=== PATIENT | female | born 1980 | race African-American/Black ===

== ENCOUNTER 2016-12-15 12:22 | Emergency (ER) | payer SELFPAY ==
[2016-12-15 13:44] VITALS: BP 148/77
--- NOTE | 2016-12-15 15:02 | UC ---
Complaint Female HPI - HPI Summary HPI Summary: 36 year old female complaining of right low back pain which radiates down the posterior leg into the right popliteal space with numbness and tingling x 1 month. Pain started when patient woke up and attempted to get out of bed. 10/10 deep achy pain accompanied by numbness and tingling with movement of the right leg. Patient reports weakness in the right leg with prolonged standing. Denies injury to the back. : Patient reports right sided mid-back/flank pain and urinary frequency x 10 days. Denies any sexual intercourse x 2 years, fever, n/v. Patient states, "I have felt wetter down there, vaginally." Denies textural changes in vaginal discharge or odor. - History Of Current Complaint Chief Complaint: UCBackPain Stated Complaint: LOWER BACK PAIN Time Seen by Provider: 12/15/16 14:21 Hx Obtained From: Patient Hx Last Menstrual Period: 11/29/16 ?: No Onset/Duration: Gradual Onset Timing: Intermittent Severity Initially: Moderate Severity Currently: Moderate Pain Intensity: 10 Pain Scale Used: 0-10 Numeric Character: Sharp - Sharp right sided CVA pain, Dull Aggravating Factor(s): Movement Alleviating Factor(s): Position Associated Signs And Symptoms: Positive: Back Pain, Vaginal Discharge. Negative : Fever, Nausea, Genital Swelling - Risk Factors Ectopic Risk Factor: Negative Ovarian Torsion Risk Factor: Negative - Allergies/Home Medications Allergies/Adverse Reactions: Allergies Allergy/AdvReac Type Severity Reaction Status Date / Time No Known Allergies Allergy Verified 12/15/16 13:44 PMH/Surg Hx/FS Hx/Imm Hx Previously Healthy: Yes Endocrine History Of: Denies: Diabetes Cardiovascular History Of: Denies: Hypertension Respiratory History Of: Denies: COPD, Asthma, Bronchitis, Pneumonia, Pulmonary Embolism GI/ History Of: Denies: Gastroesophageal Reflux, Ulcer, Gastrointestinal Bleed, Gall Bladder Disease, Kidney Stones, Diverticulitis, Renal Disease, Urosepsis Neurological History Of: Denies: TIA, CVA, Dementia, Seizures, Migraine Psychological History Of: Denies: Anxiety, Depression, Bipolar Disorder, Schizophrenia, Post Traumatic Stress Disorder - Surgical History Surgical History: Yes Surgery Procedure, Year, and Place: 1 C SECTION - Family History Known Family History: Positive: Unknown, Cardiac Disease, Hypertension, Diabetes - Social History Occupation: Employed Part-time Lives: Alone Alcohol Use: None Substance Use Type: Marijuana Smoking Status (MU): Current Every Day Smoker Type: Cigarettes Amount Used/How Often: 1 PACK/WEEK Have You Smoked in the Last Year: Yes Household Exposure Type: Cigarettes Review of Systems Constitutional: Negative Skin: Negative Eyes: Negative ENT: Negative Respiratory: Negative Cardiovascular: Negative Gastrointestinal: Negative Genitourinary: Frequency, Urgency Motor: Negative Neurovascular: Negative Musculoskeletal: Other: - Weakness in the right leg Neurological: Weakness, Numbness Psychological: Negative All Other Systems Reviewed And Are Negative: Yes Physical Exam Triage Information Reviewed: Yes Appearance: No Pain Distress Vital Signs: Initial Vital Signs Temp 97.9 F 12/15/16 13:39 Pulse 69 12/15/16 13:39 Resp 16 12/15/16 13:39 BP 148/77 12/15/16 13:39 Pulse Ox 100 12/15/16 13:39 Vital Signs Reviewed: Yes Eye Exam: Normal Eyes: Positive: Conjunctiva Clear ENT Exam: Normal ENT: Positive: Normal ENT inspection, Hearing grossly normal, Pharynx normal, TMs normal Dental Exam: Normal Neck exam: Normal Neck: Positive: Supple, Nontender, No Lymphadenopathy Respiratory: Positive: Chest non-tender, Lungs clear, Normal breath sounds, No respiratory distress Abdomen Description: Positive: No Organomegaly, Soft, Distended - Related to weight Bowel Sounds: Positive: Present Musculoskeletal: Positive: Other: - Right sided CVA tenderness Neurological: Positive: Alert Psychological Exam: Normal Psychological: Positive: Normal Response To Family Skin Exam: Normal Complaint Female Dx - Differential Dx/Diagnosis Provider Diagnoses: Right sided lumbar radiculopathy. Right sided low back pain with muscle spasm. Right adnexal mass Discharge - Discharge Plan Condition: Stable Disposition: HOME Prescriptions: Cyclobenzaprine TAB* [Flexeril TAB*] 10 mg PO TID PRN #15 tab PRN Reason: Pain Naproxen Sodium 500 mg PO BID #20 tab Patient Education Materials: Lumbar Radiculopathy (ED), Ovarian Cyst (ED) Referrals: Lidia Ndiaye MD [Medical Doctor] - Addendum entered and electronically signed by Nanda Tuttle NP 12/15/16 16:37 : UC Addendum Addendum: Provider placed call to Dr Ndiaye bus person for consultation. OBGYN unable to give consultation stating, "this is not a patient at OBGYN, if you think they need consultation, send them to the ED". Discussed with patient red flags which would prompt her to seek immediate medical care.
[2016-12-15] MEDS ORDERED: Ketorolac INJ* 30 MG/ML 1 ML VIAL IM ONE (15:16)
[2016-12-15] MEDS ORDERED: Cyclobenzaprine TAB* 10 MG PO ONE (15:17)
--- NOTE | 2016-12-15 15:44 | RAD ---
Indication: Right flank pain, urinary frequency and hematuria. CT of the abdomen and pelvis was performed without oral or IV contrast administration. Coronal and sagittal reconstructed images were obtained. Prior CT of the lumbar spine dated July 02, 2014 was reviewed. Lung bases imaging no pleural fluid, nodules or masses. Heart is of normal size without evidence of pericardial effusion. Liver is normal in size. No focal lesions or intrahepatic ductal dilatation is noted. The gallbladder is partially contracted. No pericholecystic fluid or wall thickening is noted. Pancreas demonstrates no mass or pancreatic duct dilatation. There is left adrenal hyperplasia. Right adrenal gland is unremarkable. No hydronephrosis of either kidney is noted. No evidence of dilated ureters are noted. No evidence of ureteral calculi is noted. Beginning bladder is unremarkable. CT of the pelvis demonstrates a mass in the right adnexa. This demonstrates a fat fluid level and measures up to 5.4 x 6.4 cm with calcification. This is suspicious for dermoid cyst. Left ovary is grossly unremarkable. Numerous changes of the uterus are noted. No dilated loops of bowel are noted. The colon is filled with stool. IMPRESSION: NO EVIDENCE OF OBSTRUCTIVE UROPATHY IS NOTED. RIGHT ADNEXAL MASS WITH A FAT FLUID LEVEL NOTED. THERE ARE SOME CALCIFICATIONS NOTED. THIS IS SUSPICIOUS FOR DERMOID CYST. LEFT ADRENAL HYPERPLASIA IS NOTED. THIS IS UNCHANGED FROM THE PRIOR CT DATED JULY 02, 2014.
== END 2016-12-15 16:45 | disposition home or self-care (01) ==
LOC: UCEAST 12:22
DX: M54.16 Radiculopathy, lumbar region (principal); M62.830 Muscle spasm of back; R22.31 Localized swelling, mass and lump, right upper limb; F12.90 Cannabis use, unspecified, uncomplicated; F17.210 Nicotine dependence, cigarettes, uncomplicated
CPT/HCPCS: 74176; 81002; 96372; 99212; A9270-GY; G0463; J1885

== ENCOUNTER 2017-02-27 06:30 | Day surgery (SDC) | payer OTHER ==
[~2017-02-27 06:30] MED LIST: Buffered Lidocaine 1% SYR 3ML* 3 ML/SYR SYRINGE INTRADERM ONE; Dexamethasone IV* 4 MG/ML 1 ML (4 MG) IV SLOW PU ONE; Famotidine IV* 10 MG/ML 2 ML (20 mg) IV ONE
[2017-02-27 06:36] LABS: UR Preg Kit Lot# 6030156
[2017-02-27 06:37] LABS: Manual Entry Verification CAR0052; UR Preg Internal Control QC Line Present
[2017-02-27] MEDS ORDERED: Famotidine IV* 10 MG/ML 2 ML (20 mg) ONE (06:39)
[2017-02-27] MEDS ORDERED: Dexamethasone IV* 4 MG/ML 1 ML (4 MG) ONE (06:39)
[2017-02-27 07:17] LABS: Hematocrit 37 % (35-47); Mean Corpuscular HGB Conc 33 g/dl (31-36); Mean Corpuscular Hemoglobin 25 pg (27-31); Mean Corpuscular Volume 77 fL (80-97); Mean Platelet Volume 9 um3 (7.4-10.4); Red Blood Count 4.76 10^6/ul (4.0-5.4); Red Cell Distribution Width 15 % (10.5-15)
[2017-02-27] MEDS ORDERED: Bupivacaine 0.25% SDV* 30 ML ONE (07:20)
[2017-02-27] MEDS ORDERED: fentaNYL* 50 MCG/ML 2 ML VIAL (100 MCG VIAL) ONE ×3 (07:29→10:33)
[2017-02-27] MEDS ORDERED: KETAMINE HCL* 50 MG/ML 10 ML VIAL ONE (07:29)
[2017-02-27] MEDS ORDERED: Midazolam* 1 MG/ML 2 ML VIAL (2 MG) ONE (07:30)
[2017-02-27] MEDS ORDERED: Lidocaine 1% INJ* 10 MG/ML 30 ML SDV ONE (07:34)
[2017-02-27] MEDS ORDERED: Rocuronium* 10 MG/ML VIAL ONE ×2 (08:04→09:11)
[2017-02-27] MEDS ORDERED: Labetalol IV* 5 MG/ML 20 ML VIAL ONE (08:09)
[2017-02-27] MEDS ORDERED: DiMENhydriNATE IV* 50 MG/ML VIAL IV PUSH PRN (09:03)
[2017-02-27] MEDS ORDERED: fentaNYL* 50 MCG/ML 2 ML VIAL (100 MCG VIAL) IV PRN (09:03)
[2017-02-27] MEDS ORDERED: Glycopyrrolate IV* 0.2 MG/ML 1 ML VIAL ONE (09:11)
[2017-02-27] MEDS ORDERED: Propofol* 10 MG/ML 20 ML BTL IV PUSH ONE (09:11)
[2017-02-27] MEDS ORDERED: Ondansetron INJ* 2 MG/ML VIAL ONE (09:11)
[2017-02-27] MEDS ORDERED: Succinylcholine* 20 MG/ML 10 ML VIAL ONE (09:11)
[2017-02-27] MEDS ORDERED: Neostigmine Methylsulfate* 2 MG/2 ML SYRINGE ONE (09:11)
[2017-02-27] MEDS ORDERED: Metoclopramide IV* 5 MG/ML 2 ML VIAL ONE (09:11)
[2017-02-27] MEDS ORDERED: Ketorolac INJ* 30 MG/ML 1 ML VIAL ONE (09:11)
[2017-02-27 11:18] VITALS: BP 123/75
--- NOTE | 2017-02-28 05:37 | OP ---
OPERATIVE REPORT: DATE OF OPERATION: 02/27/17 - [facility] DATE OF : 82 SURGEON: Yaneth Ansari MD SUPERVISORY INVESTIGATIVE SPECIALIST: Herminio Andersen MD ANESTHESIOLOGIST: Dr. Bryan. ANESTHESIA: General endotracheal. PRE-OP DIAGNOSIS: A 6-cm right ovarian cyst and morbid obesity. POST-OP DIAGNOSIS: A 6-cm right dermoid cyst and morbid obesity. OPERATIVE PROCEDURE: Laparoscopic right ovarian cystectomy. ESTIMATED BLOOD LOSS: 50 cc. URINE OUTPUT: 600 cc. IV FLUIDS: 1400 cc of lactated Ringer's. MATERIALS TO LABS: Right dermoid cyst. INDICATIONS: The patient is a 37-year-old, 3, para 2 who was incidentally found to have an approximately 6 cm right ovarian cyst, which appeared consistent with a dermoid. The patient only had fairly mild pelvic discomforts related to the cyst. After discussing her options, she desired to proceed with cystectomy. Since the patient is morbidly obese, trying to this with a laparotomy would have likely involved a very large incision, so we decided to proceed with a laparoscopic procedure. She was extensively counseled and consent was signed. FINDINGS: As expected, there was a large right ovarian cyst. Both tubes appeared to have been ligated in the past. Left ovary was normal size, but had some nodularity. Right ovarian tissue, which was attached to the dermoid also had some of this nodular appearance. Uterus appeared normal. There was a moderate amount of omental adhesions in the midline near the umbilicus from the patient's previous midline vertical incision. COMPLICATIONS: None. DESCRIPTION OF PROCEDURE: The risks, benefits, and alternatives were described to the patient and informed consent was obtained. The patient was taken to the operating room with IV running, where general anesthesia was induced and found to be adequate. The patient was prepped and draped in the normal sterile fashion in the low lithotomy position in [facility]. The patient's arms were crossed over her chest for better access laparoscopically. A Brandon catheter was placed during the prep. A time-out was performed. A bivalved speculum was placed in the vagina and a Hulka tenaculum was placed through the cervix and attached to the anterior cervix. The speculum was then removed and attention was then turned to the abdomen. Gloves were changed. 0.25% Marcaine was injected into the umbilicus and a 5 mm skin incision was made with the scalpel. Penetrating towel clamps were placed on the skin on either side. A long 5 mm bladeless trocar was then placed through the umbilical incision and into the peritoneal cavity using the towel clamps for elevation of the skin. Placement in the peritoneal cavity was confirmed laparoscopically. The peritoneum was then insufflated with carbon dioxide gas to a maximum pressure of 15 mmHg. 0.25% Marcaine was then injected into the left and right sides of the abdomen at about the level of the umbilicus. 5 mm incisions were made on both sides and again 5 mm trocars were placed on both sides without difficulty. The patient was then placed in the Trendelenburg position and the pelvis was well evaluated. There appeared to be a large right cyst with distinct ovarian tissue near the IP ligament. Decision was made to proceed with cystectomy at that time. A small incision was made using monopolar cautery on laparoscopic serina at the junction between the cyst and the ovarian tissue. Once this was opened, a LigaSure was used to extend this incision. We were able to find a relatively avascular plane here and using the LigaSure for coagulation of the tissue, the cyst was able to be intact and amputated from the right ovary. One area of bleeding was able to be quickly coagulated using the LigaSure. Once the cyst had been amputated from the ovary , it was left in the pelvis. The umbilical port was then removed and the incision was extended using the scalpel. A 12-mm bladeless trocar was then placed into the umbilical site without difficulty. A 12mm Endo Catch bag was then placed into the pelvis and the cyst was able to be placed into the bag without difficulty. Once the bag was closed, the opening was brought up through the umbilical incision. Since the cyst was much larger than the 12 mm port, the skin and then the fascial incisions were extended using scalpel and scissors. The fascial incision was extended to about 3 cm. Once this was done , the bag was able to be brought up enough so that the cyst was visualized. Once the cyst was ruptured, the sebaceous fluid was quickly suctioned and removed. Once this was complete, the cyst was able to be removed in the bag. The subcutaneous tissues were copiously irrigated with saline to remove whatever spillage of the cyst fluid there was. Of note, there was some hair noted inside the cyst, which was consistent with a dermoid. At that time, the fascial incision was reapproximated using 0 Polysorb in a running fashion. The abdomen was then again insufflated with carbon dioxide gas. The pelvis and especially the ovarian dissection site were carefully inspected and there was excellent hemostasis present. There was no visible active bleeding from the port sites. The umbilical site was very carefully inspected where a moderate amount of fatty tissue and omentum were adhesed. On inspection, there did not appear to be any evidence of bowel in the fatty tissue that was adhesed to the anterior wall. The gas was then allowed to escape completely from the abdomen and the patient was placed in a flat position. The lateral ports were then removed. All 3 skin incisions were then reapproximated using 4-0 Monocryl in a subcuticular stitch. All 3 were covered with a dermal skin adhesive. The Hulka tenaculum was removed from the cervix and the patient was returned to the supine position. The patient tolerated the procedure well. Sponge, lap, and needle counts were correct x2. [id number]/[facility] #: [id number] [facility]
== END 2017-03-24 08:44 | disposition home or self-care (01) ==
LOC: OR 06:30
PROVIDERS: ATTEND Obstetrics & Gynecology
DX: D27.0 Benign neoplasm of right ovary (principal); E66.01 Morbid (severe) obesity due to excess calories; Z68.42 Body mass index [BMI] 45.0-49.9, adult; Z72.0 Tobacco use
CPT/HCPCS: 36415; 81025; 85027; 86850; 86900; 86901; 88305; J0330; J1100; J1885; J2001; J2250; J2405; J2704; J3010

== ENCOUNTER → 2017-03-07 11:36 | Emergency (ER) | payer OTHER ==
[2017-03-07 11:40] VITALS: BP 124/67
== END | disposition left against medical advice (07) ==
LOC: ED 11:36
DX: M79.602 Pain in left arm (principal); Z53.21 Procedure and treatment not carried out due to patient leaving prior to being seen by health care provider
CPT/HCPCS: 93005

== ENCOUNTER 2017-06-10 12:53 | Emergency (ER) | payer OTHER ==
--- NOTE | 2017-06-10 14:32 | UC ---
Back Pain HPI - HPI Summary HPI Summary: 37 y/o female presents to the urgent care c/o of lower back pain after she fell from a chair at work on Thursday06/07/2017. Pt reports her pain is constant and is 8/10 today w/o any radiation, tingling or numbness over the lower extremities. Pt has taking Ibuprofen on and off w/ Epson salt which has alleviate pain. She took a Percocet yesterday that was given by a family member , but felt very drowsy. Pt denies fecal or urinary incontinence, saddle anesthesia, SOB, chest pain, N/V/D, fever. - History of Current Complaint Hx Obtained From: Patient Hx Last Menstrual Period: 05/26/17 ?: No Onset/Duration: Sudden Onset, Lasting Days, Still Present Timing: Constant Severity Initially: Moderate Severity Currently: Moderate Pain Intensity: 8 Pain Scale Used: 0-10 Numeric Back Pain: Is Discrete @ - lower back Character: Sharp, Spasmodic Aggravating: Movement, Lifting, Bending Alleviating: Rest Associated Signs And Symptoms: Negative: Fever, Numbness, Tingling, Bladder Incontinence, Bowel Incontinence, Weight Loss - Risk Factors AAA Risk Factors: Negative TAD Risk Factors: Negative Cauda Equina Risk Factors: Negative Epidural Abscess Risk Factors: Negative <Diana Jean - Last Filed: 06/12/17 01:40> <Pippa William - Last Filed: 06/12/17 07:30> - History of Current Complaint Chief Complaint: UCBackPain Stated Complaint: BACK PAIN Time Seen by Provider: 06/10/17 14:10 - Allergies/Home Medications Allergies/Adverse Reactions: Allergies Allergy/AdvReac Type Severity Reaction Status Date / Time No Known Allergies Allergy Verified 03/07/17 11:37 PMH/Surg Hx/FS Hx/Imm Hx Previously Healthy: Yes Other GI/ History: Benigns neoplasm of the ovary - Surgical History Surgical History: Yes Surgery Procedure, Year, and Place: 1 C SECTION 2004. tonsillectomy 9 or 10 yrs old - Family History Known Family History: Positive: Unknown, Cardiac Disease, Hypertension, Diabetes - Social History Occupation: Employed Full-time Lives: With Family Alcohol Use: Rare Alcohol Amount: 1 drink every 3 months Substance Use Type: Marijuana Substance Use Comment - Amount & Last Used: smokes marijuana daily Smoking Status (MU): Current Some Day Smoker Type: Cigarettes Amount Used/How Often: 1 PACK/WEEK Have You Smoked in the Last Year: Yes Household Exposure Type: Cigarettes <Diana Jean - Last Filed: 06/12/17 01:40> Review of Systems Constitutional: Negative Skin: Negative Eyes: Negative ENT: Negative Respiratory: Negative Cardiovascular: Negative Gastrointestinal: Negative Genitourinary: Negative Motor: Negative Neurovascular: Negative Musculoskeletal: Other: - lower back pain Neurological: Negative Psychological: Negative All Other Systems Reviewed And Are Negative: Yes <FabriciojaDiana monge - Last Filed: 06/12/17 01:40> Physical Exam Triage Information Reviewed: Yes Appearance: Well-Appearing, No Pain Distress, Well-Nourished, Obese Vital Signs: Initial Vital Signs Temp 98 F 06/10/17 12:57 Pulse 76 06/10/17 12:57 Resp 17 06/10/17 12:57 Pulse Ox 100 06/10/17 12:57 Vital Signs Reviewed: Yes Eye Exam: Normal Eyes: Positive: Conjunctiva Clear - PERRLA, EOMI, fundi grossly normal ENT Exam: Normal ENT: Positive: Normal ENT inspection, Hearing grossly normal, Pharynx normal, TMs normal Dental Exam: Normal Neck exam: Normal Neck: Positive: Supple, Nontender, No Lymphadenopathy Respiratory Exam: Normal Respiratory: Positive: Chest non-tender, Lungs clear, Normal breath sounds Cardiovascular Exam: Normal Cardiovascular: Positive: RRR, No Murmur, Pulses Normal, Brisk Capillary Refill Abdominal Exam: Normal Abdomen Description: Positive: Nontender, No Organomegaly, Soft. Negative: CVA Tenderness (R), CVA Tenderness (L) Bowel Sounds: Positive: Present Musculoskeletal: Positive: Strength Intact, No Edema, Other: - BACK: Patient walked into the urgent care room with symmetric ambulation, No signs of limping , antalgic, able to bear weight. No signs of trauma, No masses palpated. Point tenderness at the level of L5-S1,tenderness over the paraspinal muscles at the same level No CVAT, no flank ecchymosis . No sacroiliac notch tenderness, No saddle anesthesia.ROM: limited flexion/ extension/ lateral bending and rotation due to pain, Straight Leg Raise: negative. Patellar reflexes: brisk, symmetric Muscle strength lower extremities. Dorsiflexion/ plantar flexion of ankles. Heel / toe walk. Lower extremities: Femoral, popliteal, posterior tibial, and dorsalis pedis pulses WNL Neurological Exam: Normal Psychological Exam: Normal Skin Exam: Normal <Diana Jean - Last Filed: 06/12/17 01:40> Vital Signs: Initial Vital Signs Temp 98 F 06/10/17 12:57 Pulse 76 06/10/17 12:57 Resp 17 06/10/17 12:57 Pulse Ox 100 06/10/17 12:57 <Pippa William - Last Filed: 06/12/17 07:30> Back Pain Course/Dx - Course Course Of Treatment: 37 y/o female presents to the urgent care c/o of lower back pain after she fell from a chair at work on Thursday06/07/2017. Pt reports her pain is constant and is 8/10 today w/o any radiation, tingling or numbness over the lower extremities. Pt has taking Ibuprofen on and off w/ Epson salt which has alleviate pain. She took a Percocet yesterday that was given by a family member, but felt very drowsy. Pt denies fecal or urinary incontinence, saddle anesthesia, SOB, chest pain, N/V/D, fever. Hx obtained. PE abnormal findings:BACK: Patient walked into the urgent care room with symmetric ambulation, No signs of limping, antalgic, able to bear weight. No signs of trauma, No masses palpated. Point tenderness at the level of L5-S1,tenderness over the paraspinal muscles at the same level No CVAT, no flank ecchymosis . No sacroiliac notch tenderness, No saddle anesthesia.ROM: limited flexion/ extension/ lateral bending and rotation due to pain, Straight Leg Raise: negative. Patellar reflexes: brisk, symmetric Muscle strength lower extremities. Dorsiflexion/ plantar flexion of ankles. Heel/ toe walk. Lower extremities: Femoral, popliteal, posterior tibial, and dorsalis pedis pulses WNL. Pt w/ Hx of back pain, last years X-ray was negative. Pt Rx Naproxen PO and flexeril PO, avoid driving. Advised to wear a back support, avoid heavy lifting. f/u with her PCP for further evalaution and treatment. Pt understood and agreed and left the clinic ambulating. - Differential Dx/Diagnosis Differential Diagnosis/HQI/PQRI: Cauda Equina Syndrome, Compressive Cord Syndrome, Herniated Disc, Renal Colic, Strain, Sprain Provider Diagnoses: 1- Acute lower back pain. <Diana Jean - Last Filed: 06/12/17 01:40> Discharge <Diana Jean - Last Filed: 06/12/17 01:40> <Pippa William - Last Filed: 06/12/17 07:30> - Discharge Plan Condition: Stable Disposition: HOME Prescriptions: Cyclobenzaprine TAB* [Flexeril 10 MG TAB*] 10 mg PO TID PRN #15 tab PRN Reason: Spasms - Back Naproxen TAB* [Naprosyn 250 mg TAB*] 500 mg PO Q8H PRN #30 tab PRN Reason: Pain Patient Education Materials: Acute Low Back Pain (ED), Low Sodium Diet (ED) Forms: *Work Release Referrals: No Primary Care Phys,NOPCP [Primary Care Provider] - [facility] [Outside] - 1 Week Additional Instructions: Please take medications as instructed. Please apply ice, rest, wear a back support, avoid heavy lifting or strenuous exercise. Please f/u with your PCP in 1 week if symptoms do not improve. If pain increases despite medication go to the ER immediately. For elevated blood pressure please decrease salt intake and monitor your BP. Please F/u with PCP for further treatment. Attestation Statement User Type: Provider - I was available for consult. This patient was seen by the advanced practice provider. The patient was not presented to, seen by, or examined by me.-Peter <Pippa William - Last Filed: 06/12/17 07:30>
[2017-06-10 14:45] VITALS: BP 120/95
== END 2017-06-10 14:40 | disposition home or self-care (01) ==
LOC: UCEAST 12:53
DX: M54.5 Low back pain (principal); E66.9 Obesity, unspecified; F12.90 Cannabis use, unspecified, uncomplicated; Z72.0 Tobacco use
CPT/HCPCS: 99212; G0463

== ENCOUNTER 2019-03-01 18:46 | Emergency (ER) | payer OTHER ==
[2019-03-01 18:54] VITALS: BP 151/80
--- NOTE | 2019-03-01 19:47 | UC ---
Dental HPI - HPI Summary HPI Summary: Onset of left upper dental pain yesterday morning. No fever or noticeable drainage. Does not have a dentist. - History of Current Complaint Chief Complaint: UCDentalProblem Stated Complaint: DENTAL COMPLAINT Time Seen by Provider: 03/01/19 19:20 Hx Obtained From: Patient Hx Last Menstrual Period: 02/16/19 Onset/Duration: Gradual Onset, Lasting Days, Still Present Severity: Moderate Pain Intensity: 8 Pain Scale Used: 0-10 Numeric Aggravating Factor(s): Heat, Cold, Chewing Alleviating Factor(s): OTC Meds - IBUPROFEN - Allergies/Home Medications Allergies/Adverse Reactions: Allergies Allergy/AdvReac Type Severity Reaction Status Date / Time No Known Allergies Allergy Verified 03/01/19 18:54 Home Medications: Home Medications Ibuprofen 800 mg PO 03/01/19 [History] PMH/Surg Hx/FS Hx/Imm Hx Previously Healthy: Yes - Surgical History Surgical History: Yes Surgery Procedure, Year, and Place: 1 C SECTION 2004. tonsillectomy 9 or 10 yrs old - Family History Known Family History: Positive: Unknown, Cardiac Disease, Hypertension, Diabetes - Social History Alcohol Use: Rare Alcohol Amount: 1 drink every 3 months Substance Use Type: Marijuana Substance Use Comment - Amount & Last Used: smokes marijuana daily Smoking Status (MU): Light Every Day Tobacco Smoker Type: Cigarettes Amount Used/How Often: 1 PACK/WEEK Have You Smoked in the Last Year: Yes Household Exposure Type: Cigarettes Review of Systems All Other Systems Reviewed And Are Negative: Yes Constitutional: Positive: Negative ENT: Positive: Dental Pain Respiratory: Positive: Negative Cardiovascular: Positive: Negative Gastrointestinal: Positive: Negative Physical Exam Triage Information Reviewed: Yes Appearance: Well-Appearing, Well-Nourished, Pain Distress - MILD/MOD Vital Signs: Initial Vital Signs Temp 97.8 F 03/01/19 18:49 Pulse 82 03/01/19 18:49 Resp 18 03/01/19 18:49 BP 151/80 03/01/19 18:49 Pulse Ox 100 03/01/19 18:49 Vital Signs Reviewed: Yes Eyes: Positive: Conjunctiva Clear ENT: Positive: Hearing grossly normal, Pharynx normal, TMs normal Dental: Positive: Percussion Tenderness @ - LEFT UPPER, Gross Decay/Caries @ Neck: Positive: Supple, Nontender, No Lymphadenopathy Respiratory: Positive: No respiratory distress, No accessory muscle use Cardiovascular: Positive: Pulses Normal Abdomen Description: Positive: Soft Musculoskeletal: Positive: No Edema Neurological: Positive: Alert Psychological: Positive: Age Appropriate Behavior Skin: Negative: Rashes Dental Complaint Course/Dx - Differential Dx/Diagnosis Provider Diagnosis: Toothache Discharge - Sign-Out/Discharge Documenting (check all that apply): Patient Departure All imaging exams completed and their final reports reviewed: No Studies - Discharge Plan Condition: Stable Disposition: HOME Prescriptions: Amoxicillin/Clavulanate TAB* [Augmentin TAB 875*] 875 mg PO BID #20 tab Chlorhexidine MW 0.12% 473ML* [Peridex Mouth Wash 0.12%*] 15 ml SWISH SPIT BID # 1 bottle HYDROcodone/ACETAMIN 5-325 MG* [Dale 5-325 TAB*] 1 tab PO Q6H PRN #15 tab MDD 4 PRN Reason: Pain Patient Education Materials: Toothache (ED) Referrals: Loli Joshi NP [Primary Care Provider] - If Needed Additional Instructions: TAKE THE ANTIBIOTICS FOR THE FULL COURSE. RINSE YOUR MOUTH WITH WATER AFTER EATING OR DRINKING ANYTHING. ANTISEPTIC MOUTH RINSE TWICE DAILY. OTC MEDS NEEDED FOR DISCOMFORT. HYDROCODONE FOR BREAKTHROUGH FOLLOW-UP WITH A DENTIST [facility]. IBUPROFEN MAX DOSE: 600MG (3 TABS) EVERY 6 HRS OR 800MG (4 TABS) EVERY 8 HRS OR NAPROXEN MAX DOSE: 440MG (2 TABS) EVERY 12 HRS TYLENOL MAX DOSE: 1000MG (2 EXTRA STRENGTH TABS) EVERY 8 HRS OR 650MG (2 REGULAR TABS) EVERY 6 HRS [facility] D[facility] Dentist Office [address], [place], [place] [id number] Opens at [address] Dr. Efren Huerta, DDS [address], [place], [place] [address] Arnulfo Manuel D.D.S. [address], [place], [place] [id number] Opens at 8am - Billing Disposition and Condition Condition: STABLE Disposition: Home
== END 2019-03-01 19:50 | disposition home or self-care (01) ==
LOC: UCEAST 18:46
DX: K08.89 Other specified disorders of teeth and supporting structures (principal); F17.210 Nicotine dependence, cigarettes, uncomplicated; K02.9 Dental caries, unspecified
CPT/HCPCS: 99212; G0463

== ENCOUNTER 2020-01-09 15:17 | Emergency (ER) | payer SELFPAY ==
[2020-01-09 15:48] VITALS: BP 130/81
--- NOTE | 2020-01-09 17:46 | UC ---
Back Pain HPI - HPI Summary HPI Summary: 39 year old female, denies PMH/ DM, presents with increased back pain, right sided and left foot pain. Patient states increased pain in lower back, right side only x several weeks, has had history of back pain x ~ 2 years. Obese, stands for long periods at her job at [employer]. Denies numbness/ tlinging, radiating down either leg, no bowel/ bladder loss. better with rest. left foot has been painful for several weeks, worse with standing for longer periods of time. no numbness/ tingling. no coolness. better with rest. - History of Current Complaint Chief Complaint: UCBackPain Stated Complaint: BACK, LEG PAIN Time Seen by Provider: 01/09/20 16:09 Hx Obtained From: Patient Hx Last Menstrual Period: one week ago ?: No Onset/Duration: Sudden Onset, Lasting Days Timing: Constant Severity Initially: Moderate Severity Currently: Moderate Pain Intensity: 8 Pain Scale Used: 0-10 Numeric Back Pain: Is Discrete @ - left foot, right lower back Character: Sharp, Aching Aggravating Factor(s): Movement, Bending, Walking Alleviating Factor(s): Rest Associated Signs And Symptoms: Positive: Swelling, Pain with Weight Bearing. Negative: Redness, Bruising, Weakness, Numbness, Tingling, Abdominal Pain, Bladder Incontinence, Bowel Incontinence, Weight Loss - Allergies/Home Medications Allergies/Adverse Reactions: Allergies Allergy/AdvReac Type Severity Reaction Status Date / Time No Known Allergies Allergy Verified 01/09/20 15:48 Home Medications: Home Medications Ibuprofen 600 mg PO ONCE 03/01/19 [History Confirmed 01/09/20] Cyclobenzaprine TAB* [Flexeril 10 MG TAB*] 10 mg PO TID PRN #30 tab 01/09/20 [Rx ] Naproxen [Naproxen 250 mg tab] 250 mg PO Q12HR #30 tablet 01/09/20 [Rx] methylPREDNISolone [Medrol] 4 mg PO .SEE IN #1 tab.ds.pk 01/09/20 [Rx] PMH/Surg Hx/FS Hx/Imm Hx Previously Healthy: Yes - Surgical History Surgical History: Yes Surgery Procedure, Year, and Place: cyst removed from right ovary - Family History Known Family History: Positive: Unknown, Cardiac Disease, Hypertension, Diabetes - Social History Occupation: Employed Full-time - [employer] Alcohol Use: Rare Alcohol Amount: 1 drink every 3 months Substance Use Type: Marijuana Substance Use Comment - Amount & Last Used: smokes marijuana daily Smoking Status (MU): Light Every Day Tobacco Smoker Type: Cigarettes Amount Used/How Often: 1 PACK/WEEK Have You Smoked in the Last Year: Yes Household Exposure Type: Cigarettes Review of Systems All Other Systems Reviewed And Are Negative: Yes Constitutional: Positive: Negative Skin: Positive: Negative. Negative: Bruising Musculoskeletal: Positive: Arthralgia, Decreased ROM, Edema, Myalgia Neurological/Mental Status: Positive: Negative Psychological: Positive: Negative Is Patient Immunocompromised?: No Physical Exam Triage Information Reviewed: Yes Appearance: Well-Appearing, Well-Nourished, Pain Distress - mild Vital Signs: Initial Vital Signs Temp 97.7 F 01/09/20 15:45 Pulse 70 01/09/20 15:45 Resp 16 01/09/20 15:45 BP 130/81 01/09/20 15:45 Pulse Ox 100 01/09/20 15:45 Vital Signs Reviewed: Yes Eyes: Positive: Conjunctiva Clear ENT: Positive: Hearing grossly normal Musculoskeletal: Positive: Other: - TTP over right flank/ above iliac crest on Right side. Left side non-tender. moderate TTP over lumbar spine, SI joint b /l, none over thoracic. paraspinal tenderness lumbar region, R>L.. Patellar reflex 1+ b/l. neg homans. PT 2+ b/l. Full ROM, strength with b/l hip, knee , ankle testing grossly. ambulatory without difficulty. Neurological: Positive: Alert, Other: - patellar refelxes 1+ b/l Psychological Exam: Normal Psychological: Positive: Normal Response To Family Skin Exam: Normal Skin: Positive: Other - no erythema, no warmth noted over areas of tenderness. Denies. Negative: Rashes Back Pain Course/Dx - Course Course Of Treatment: Lower Back Strain, Arthritis Left foot - Steroids to help with back pain, foot pain - Naproxen after completed Medrol dose pack to help with inflammation, 1 tablet twice daily x 5 days - Stretching as shown - Physical therapy script given - Follow up with Dr. Priest for back pain, foot pain - work note given - FLexeril as needed for muscle spasms - Differential Dx/Diagnosis Provider Diagnosis: Strain of fascia of lower back, Arthritis Discharge ED - Sign-Out/Discharge Documenting (check all that apply): Patient Departure All imaging exams completed and their final reports reviewed: Yes - Discharge Plan Condition: Good Disposition: HOME Prescriptions: Cyclobenzaprine TAB* [Flexeril 10 MG TAB*] 10 mg PO TID PRN #30 tab PRN Reason: muscle spasms methylPREDNISolone [Medrol] 4 mg PO .SEE IN #1 tab.ds.pk Naproxen [Naproxen 250 mg tab] 250 mg PO Q12HR #30 tablet Patient Education Materials: Low Back Strain (ED), Core Strengthening Exercises (GEN), Lower Back Exercises (ED) Forms: *Work Release Referrals: No Primary Care Phys,NOPCP [Primary Care Provider] - Marissa Priest MD [Medical Doctor] - Additional Instructions: Lower Back Strain, Arthritis Left foot - Steroids to help with back pain, foot pain - Naproxen after completed Medrol dose pack to help with inflammation, 1 tablet twice daily x 5 days - Stretching as shown - Physical therapy script given - Follow up with Dr. Priest for back pain, foot pain - work note given - FLexeril as needed for muscle spasms - Billing Disposition and Condition Condition: GOOD Disposition: Home
== END 2020-01-09 17:40 | disposition home or self-care (01) ==
LOC: UCEAST 15:17
DX: S39.012A Strain of muscle, fascia and tendon of lower back, initial encounter (principal); M19.072 Primary osteoarthritis, left ankle and foot; F17.210 Nicotine dependence, cigarettes, uncomplicated; X58.XXXA Exposure to other specified factors, initial encounter; Y92.9 Unspecified place or not applicable
CPT/HCPCS: 74150; 99212; G0463